=== PATIENT | male | born 1995 | race Caucasian/White ===

== ENCOUNTER → 2020-07-28 | Outpatient (CLI) | payer BC, OTHER | LOC: KOH-I 14:12 | DX: R22.0 Localized swelling, mass and lump, head (principal); R22.1 Localized swelling, mass and lump, neck | CPT/HCPCS: 76536 ==

== ENCOUNTER → 2020-12-22 | Outpatient (CLI) | payer BC, OTHER | LOC: KOH-I 11:30 | DX: R59.0 Localized enlarged lymph nodes (principal) | CPT/HCPCS: 76536 ==

== ENCOUNTER 2021-08-03 12:39 | Emergency (ER) | payer BC, OTHER ==
[2021-08-03 13:31] LABS: HEMOGLOBIN 16.1 gm/dl (14.0-17.5); RED BLOOD COUNT 5.36 M/UL (4.20-5.50); WHITE BLOOD COUNT 6.1 K/UL (4.5-11.0)
[2021-08-03 13:54] LABS: BUN/CREATININE RATIO 19 (0-10)
[2021-08-03] MEDS ORDERED: ZITHROMAX250 MG PO (14:26)
== END 2021-08-03 14:35 | disposition home or self-care (01) ==
LOC: ER1 12:39
PROVIDERS: Emergency Medicine
DX: R51.9 Headache, unspecified (principal); I25.10 Atherosclerotic heart disease of native coronary artery without angina pectoris
CPT/HCPCS: 70450; 80048; 85025; 93005; 99284